=== PATIENT | female | born 1975 | race Caucasian/White ===

== ENCOUNTER → 2021-06-30 | Outpatient (CLI) | payer SELFPAY ==
--- NOTE | 2021-07-06 08:41 | Diagnostic Imaging Report ---
Indication: Hypercholesterolemia CT cardiac calcium score study performed with images of the heart without contrast, followed by calculation of cardiac Raw data images demonstrate no mediastinal or hilar adenopathy. Aorta is normal in caliber. The visualized portions of the lung pillai are clear, the entirety of the lung pillai are not included on the study. Calcium score was 0 for left main coronary, 0 for LAD, and 0 for circumflex coronary artery. Calcium score was 4 for a right coronary artery. Total score was therefore 4. IMPRESSION: Coronary calcium score of 4 is compatible with minimal plaque burden. No other significant findings. Dictated by: Dictated on workstation # [id number]
== END ==
LOC: RAD FS 09:34
PROVIDERS: ATTEND Nurse Practitioner Family
DX: E78.00 Pure hypercholesterolemia, unspecified (principal)
CPT/HCPCS: 75571